=== PATIENT | female | born 1980 | race Caucasian/White ===

== ENCOUNTER → 2017-09-01 13:53 | Outpatient (CLI) | payer BC, SELFPAY ==
[2017-09-05 13:07] LABS: HPV Reflexed? NOT INDICATED
== END ==
PROVIDERS: Visit Provider Obstetrics & Gynecology
DX: R87.612 Low grade squamous intraepithelial lesion on cytologic smear of cervix (LGSIL) (principal)
CPT/HCPCS: 88175; G0145

== ENCOUNTER → 2018-03-04 11:55 | Outpatient (CLI) | payer BC, SELFPAY ==
[2018-03-10 11:56] LABS: HPV Reflexed? NOT INDICATED
== END ==
PROVIDERS: Visit Provider Obstetrics & Gynecology
DX: R87.612 Low grade squamous intraepithelial lesion on cytologic smear of cervix (LGSIL) (principal)
CPT/HCPCS: 88175; G0145

== ENCOUNTER → 2018-07-14 13:29 | Outpatient (CLI) | payer BC, SELFPAY ==
[2018-07-15 17:13] LABS: HPV Reflexed? NOT INDICATED
== END ==
PROVIDERS: Visit Provider Obstetrics & Gynecology
DX: R87.612 Low grade squamous intraepithelial lesion on cytologic smear of cervix (LGSIL) (principal)
CPT/HCPCS: 88175; G0145

== ENCOUNTER → 2018-11-26 13:52 | Outpatient (CLI) | payer BC, SELFPAY ==
[2018-12-04 12:29] LABS: HPV Reflexed? YES, CHARGE PATIENT
== END ==
PROVIDERS: Visit Provider Obstetrics & Gynecology
DX: Z12.4 Encounter for screening for malignant neoplasm of cervix (principal)
CPT/HCPCS: 87624; 88175; G0145

== ENCOUNTER → 2019-12-16 14:39 | Outpatient (CLI) | payer OTHER, SELFPAY ==
[2019-12-22 03:07] LABS: Age Gdln ACOG Testing 30-65 (.)
[2019-12-22 08:48] LABS: HPV APTIMA, High Risk Negative (Negative)
[2019-12-22 08:49] LABS: HPV Reflexed? YES, CHARGE PATIENT
== END ==
PROVIDERS: Visit Provider Obstetrics & Gynecology
DX: Z12.4 Encounter for screening for malignant neoplasm of cervix (principal)
CPT/HCPCS: 87624; 88175; G0145

== ENCOUNTER 2020-07-09 16:31 | Inpatient (IN) | payer OTHER, SELFPAY ==
[2020-07-09 16:32] VITALS: BP 158/109; PULSE 112; RESP 18; TEMP 36.9; O2SAT 99; BMI 44.6
--- NOTE | 2020-07-09 16:38 | ED.DCSUM_ITS ---
History of Present Illness Chief Complaint: Wound Check Detail of Chief Complaint: Under red swollen left breast due to trauma Informant: Patient, Family Onset: Weeks Context: Sudden Onset Timing: Continuous Quality: Pain Location: Left breast above areola Current Severity: Mild Maximum Severity: Moderate Worsened by: Touch or pressure Relieved by: Nothing Associated Symptoms: No fever, chills or night sweats. No drainage Narrative: Patient is a 40-year-old woman who states a door fell on her left breast greater than week ago. She presents now because of pain, swelling and redness. She denies history medic fever, heart murmur, SBE or mitral valve prolapse. She is on no immunosuppressive meds. She denies fever or chills. She denies any other symptoms. She denies allergy to any antibiotics. Prior similar symptoms: No Recent Illness/Hospitalization: No - Past Medical History (1) No significant past medical history Status: Acute Past Medical History - Allergies and Home Meds Allergies/Adverse Reactions: Allergies No Known Allergies Allergy (Verified 07/09/20 16:31) Primary Care Physician: Candace Luke PA-C [Primary Care Provider] - Prior records reviewed: Yes Surgical History: noncontributory Lives: Alone Alcohol: Rare Drugs: None Review of Systems General: Denies: Chills, Fever, Malaise, Subjective, Sweats, Weight loss, - Eyes: Denies: Visual changes - bilaterally, Blurred Vision - bilaterally ENT: Denies: Rhinorrhea, Sore throat Cardiovascular: Denies: Chest pain, Palpitations Respiratory: Denies: Dyspnea, Cough, Dyspnea on exertion Gastrointestinal: Denies: Abdominal pain, Nausea, Vomiting Musculoskeletal: Denies: Myalgias, Arthralgias, Neck pain, Back pain, Swelling Skin: Reports: Rash, Wounds Neurological: Denies: Headache, Weakness Endocrine: Denies: Polyuria Hematologic: Denies: Easy bruising, Easy bleeding Physical Exam Vital Signs/Narrative: Vital Signs Temp Pulse Resp BP Pulse Ox 07/09/20 16:32 98.5 F 112 H 18 158/109 H 99 Inital Vital Signs reviewed: Yes General: Well nourished, Well developed, Obese, - - Appears uncomfortable removing her top. Head: Normocephalic, Atraumatic Eyes: Perrl, EOMI. Negative for: Pale conjunctiva, Scleral icterus ENT: Moist mucous membranes, No rhinorrhea Neck: Supple, Nontender, No lymphadenopathy Cardiovascular: Regular rhythm, No murmurs, Normal S1, Normal S2, Tachycardia Respiratory: No distress, CTA bilaterally, Chest nontender Rectal: Deferred Back: Nontender, Normal Inspection Extremities: Nontender, No edema Skin: Normal color, Rash. Negative for: No rash, Cyanosis, Diaphoresis, Jaundice Neurological: Alert, Oriented x3, Cranial nerves II-XII grossly intact, Normal Strength, Normal Sensation Psychological: Normal affect, Normal Mood Diagnostic/Tx/Re-eval Laboratory Results 07/09/20 07/09/20 07/09/20 17:06 17:06 17:06 WBC 18.3 H RBC 4.18 L Hgb 12.2 Hct 37.2 MCV 89.0 MCH 29.2 MCHC 32.8 RDW Std Deviation 42.1 RDW Coeff of Umair 12.8 Plt Count 650 H MPV 9.3 Immature Gran % (Auto) 0.500 Neut % (Auto) 77.4 H Lymph % (Auto) 17.2 L [place] % (Auto) 4.2 Eos % (Auto) 0.4 Baso % (Auto) 0.3 Absolute Neuts (auto) 14.1 H Absolute Lymphs (auto) 3.15 Nucleated RBC % 0 Sodium 135 L Potassium 3.8 Chloride 103 Carbon Dioxide 23.0 Anion Gap 9 BUN 9 Creatinine 0.74 Estim Creat Clear Calc 94.60 Est GFR (MDRD) Af Amer 111 Est GFR (MDRD) Non-Af 92 BUN/Creatinine Ratio 12.1 Glucose 99 Lactic Acid 1.5 Calcium 9.3 - Medical Decision Making Has a abscess the size of a dime above the left areola. There is surrounding cellulitis. Plan is to incise and drain the abscess. Please read procedure note. Patient received antibiotics by mouth after procedure. Suspect her tachycardia is due to pain. Patient was treated IV antibiotics for sepsis. Please read procedure note. The surgeon on-call was paged and hospitalist at 1848 for admission. Procedures Procedure(s): Incision and drainage of left breast abscess. Patient was prepped draped sterile manner. The area was anesthetized by local infiltration using 1% lidocaine. A field block was placed as well. A 2.5 cm incision was made. Approximately two thirds a couple of green thick purulent material drained. The fluid was initially under pressure. The cavity is 5 x 6 cm in size. The cavity was irrigated. Using 1/2 inch Nu Gauze a wick was placed to facilitate further drainage and keep incision open. Case was discussed with surgeon and agrees with treatment. ED Disposition - Plan for ED Patient: Disposition: [facility] Diagnosis: Cellulitis and abscess of other specified site, Sepsis Referrals: Candace Luke PA-C [Primary Care Provider] -
[2020-07-09] MEDS: Lidocaine 1% (20 ml mdv) 20 ML Vial INFILT (16:45)
[2020-07-09] MEDS: HYDROmorphone 0.5 MG/0.5 ML SYRINGE IV (17:02)
[2020-07-09 17:30] LABS: Anion Gap 9 (5-15); BUN 9 mg/dL (7-18); BUN/Creat Ratio 12.1 RATIO (10-20); Calcium,Total 9.3 mg/dL (8.5-10.1); Chloride 103 mmol/L (98-107); Creatinine, Serum 0.74 mg/dL (0.55-1.02); EST Glomerular Filtration Rate 92 mL/min (>60); Est Glom Filt Rate - Afr Amer 111 mL/min (>60); Glucose 99 mg/dL (74-106); Potassium 3.8 mmol/L (3.5-5.1); Sodium Level 135 mmol/L (136-145)
[2020-07-09 17:31] LABS: Absolute Lymphocyte Count 3.15 X10^3/uL (0.83-4.51); Absolute Neutrophil Count 14.1 X10^3/uL (2.0-7.7); Basophil# 0.06 X10^3/uL; Basophil% 0.3 % (0-1); Eosinophil# 0.08 X10^3/uL; Eosinophils% 0.4 % (0-5); Hematocrit 37.2 % (37-47); Hemoglobin 12.2 g/dL (12.0-15.0); Lymphocyte # 3.15 X10^3/ul (4.0); Lymphocyte % 17.2 % (19-41); Mean Corp Hgb Conc 32.8 g/dL (32-36); Mean Corpuscular Hgb 29.2 pg (27.0-32.0); Mean Platelet Vol. 9.3 fl (6.2-12.0); Monocyte# 0.77 X10^3/uL; Monocyte% 4.2 % (0-10); NRBC Flagged by Analyzer 0 % (0-5); Neutrophil # 14.14 X10^3/uL (2.7-7.7); Neutrophil % 77.4 % (47-70); Platelet Count 650 K/mm3 (150-450); RBC Distribution Width CV 12.8 % (11.6-14.6); RBC Distribution Width SD 42.1 fl (35.1-43.9); Red Blood Count 4.18 M/mm3 (4.2-5.4); White Blood Count 18.3 K/mm3 (4.4-11.0)
[2020-07-09 18:08] LABS: Lactic Acid 1.5 mmol/L (0.4-1.9)
[2020-07-09 18:55] VITALS: BP 158/91; PULSE 99; RESP 19; TEMP 37.4; O2SAT 100
--- NOTE | 2020-07-09 19:24 | HP.PCM_ITS ---
Problem List (1) Breast abscess Status: Acute (2) No significant past medical history Status: Acute (3) Cellulitis and abscess of other specified site Status: Acute (4) Sepsis Status: Acute History of Present Illness Date of Admission: 07/09/20 Chief Complaint: swelling and pain of left breast The patient is a 40 year old F with a significant history of insomnia and depression who presents to the emergency department with pain and swelling of her left breast. Symptoms developed after a closet fell on her left breast about a month ago. She had a mammogram and an ultrasound which showed hematoma. Three days ago the pain and the swelling in the left breast increased. She described the pain in the left breast as excruciating and sharp. It is nonradiating. There are no aggravating or ameliorating factors to the pain. Her PCP told her to wait until 07/10/[address] Collier but if her symptoms increased she should come to the emergency department. Because her symptoms increase she came to the emergency department. Past Medical History Medical History: Medical History (Last Updated 07/09/20 @ 20:[address] Gurmeet Heaton MD) Insomnia G47.00 Allergies No Known Allergies Allergy (Verified 07/09/20 16:31) Home Medications: Ambulatory Orders Medication Instructions Recorded Fluoxetine [Prozac] 40 mg PO QHS 07/09/20 Zolpidem Tartrate 5 mg PO QHS 07/09/20 l-Norgest/E.estradiol-E.estrad 1 ea PO QHS 07/09/20 [Seasonique 0.15-0.03-0.01 Tab] Surgical History: cholecystectomy, - - Lives: Alone Smoking Status: Current every day smoker Tobacco Use: Cigarettes Alcohol: Rare Drugs: None - *Family History Maternal History Items: Diabetes, Hypertension Paternal History Items: Diabetes, Hypertension Review of Systems Constitutional: Reports: Chills. Denies: Weight Change HEENT: Denies: Head Aches, Sinus Congestion, Sinus Drainage Cardiovascular: Denies: Chest Pain, Palpitations Respiratory: Denies: Cough, Shortness of breath at rest, Sputum production Gastrointestinal: Denies: Abdominal Pain, Nausea, Vomiting Genitourinary: Denies: Dysuria Musculoskeletal: Denies: Joint Pain, Joint Tenderness Skin: Denies: Rash, Wounds Neurological: Denies: Numbness, Tingling, Focal weakness Psychiatric: Denies: Anxiety, Depression, Homicidal Ideations, Suicidal Ideations Hematologic/ Lymphatic: Denies: Easy Bruising, Easy Bleeding VTE Information - Inpt Only VTE Present on Admission: No VTE Mechan Device Prophylaxis: SCD's VTE Pharm Prophylaxis ordered?: No Patient Problems: Active and Suspected Problems (Last Updated 07/09/20 @ 20:[address] Gurmeet Heaton MD) No significant past medical history (Acute) Cellulitis and abscess of other specified site (Acute) Sepsis (Acute) Breast abscess (Acute) - Physical Exam Vitals/I&O's: Vital Signs Temp Pulse Resp BP Pulse Ox 99.4 F H 99 19 H 158/91 H 100 07/09/20 18:55 07/09/20 18:55 07/09/20 18:55 07/09/20 18:55 07/09/20 18:55 Oxygen Delivery Method Room Air Weight: 125.373 kg Body Mass Index (BMI) 44.6 General: Alert, Oriented x3, Cooperative HEENT: Atraumatic, PERRLA, EOMI, Normocephalic Neck: Supple, No JVD, Negative Carotid Bruits Lungs: Clear to auscultation, Normal air movement Cardiovascular: Regular rate, No murmurs Abdomen: Bowel Sounds Present, Soft, Non Tender Extremities: No edema, Capillary Refill Less than 3 Seconds Skin: No rashes, No breakdown, - - Left breast was examined after I&D. Left breast is tender; swollen with iodoform dressing in surgical incision. Musculoskeletal: No Tenderness to Palpation of Joints or Extremities Neurological: Cranial nerves II-XII grossly intact Psych/Mental Status: Normal Affect, Appropriate Laboratory Results 07/09/20 17:06: WBC 18.3 H, RBC 4.18 L, Hgb 12.2, Hct 37.2, MCV 89.0, MCH 29.2, MCHC 32.8, RDW Std Deviation 42.1, RDW Coeff of Umair 12.8, Plt Count 650 H, MPV 9.3, Immature Gran % (Auto) 0.500, Neut % (Auto) 77.4 H, Lymph % (Auto) 17.2 L, [place] % (Auto) 4.2, Eos % (Auto) 0.4, Baso % (Auto) 0.3, Absolute Neuts (auto) 14.1 H, Absolute Lymphs (auto) 3.15, Nucleated RBC % 0 07/09/20 17:06: Sodium 135 L, Potassium 3.8, Chloride 103, Carbon Dioxide 23.0, Anion Gap 9, BUN 9, Creatinine 0.74, Estim Creat Clear Calc 94.60, Est GFR (MDRD) Af Amer 111, Est GFR (MDRD) Non-Af 92, BUN/Creatinine Ratio 12.1, Glucose 99, Calcium 9.3 07/09/20 17:06: Lactic Acid 1.5 Current Medications Vancomycin HCl 2,000 mg/ (Sodium Chloride) 540 mls @ 250 mls/hr IV X1 ONE Stop: 07/09/20 20:09 Assessment/Plan All Active Problems (Last Updated 07/09/20 @ 20:[address] Gurmeet Heaton MD) No significant past medical history (Acute) Cellulitis and abscess of other specified site (Acute) Sepsis (Acute) Breast abscess (Acute) The patient is a 40 year old F with a significant history of insomnia and depression who presents to the emergency department with pain and swelling of her left breast. Abscess with cellulitis of the left breast I&D of breast abscess at the emergency department. Emergent department doctor reports draining about two thirds of greenish pus and sending cultures. Vancomycin and Unasyn ordered at emergency department and continued. Emergent department doctor discussed the case with Dr. Pacheco who is okay to follow patient. Inpatient consult for Dr. Pacheco, General surgery. Blood culture obtained at emergency department; follow Reportedly developed redness and itching vancomycin. Vancomycin rate of infusion decreased. As needed Benadryl ordered. Morbid Obesity BMI: 44.4. Complicates care. Lifestyle modification recommended. Depression Prozac continued Insomnia Ambien continued. DVT prophylaxis SCD ordered. Inpatient E&M: 18718 Init Hosp L3
[2020-07-09 19:35] VITALS: BP 152/73; PULSE 94; RESP 24; TEMP 37.2; O2SAT 100
[2020-07-09 20:37] VITALS: BP 158/91; PULSE 99; RESP 19; TEMP 37.4
[2020-07-09 20:48] VITALS: BMI 44.4
[2020-07-09 20:53] VITALS: BP 152/70; PULSE 103; RESP 18; TEMP 36.9; O2SAT 97
[2020-07-09 20:57] VITALS: BMI 44.4
[2020-07-09] MEDS: DiphenhydrAMINE 50 MG/ML Syringe 25 MG IV (21:13)
[2020-07-09] MEDS: Zolpidem Tartrate 5 MG Tablet PO (21:41)
[2020-07-09] MEDS: oxyCODONE 5 MG Tablet PO (21:41)
[2020-07-09] MEDS: Acetaminophen 325 MG Tablet 650 MG PO (21:42)
[2020-07-09] MEDS: 0.9% Saline Lock 10 ML Syringe IV (21:42)
[2020-07-09] MEDS: FLUoxetine 20 MG Capsule 40 MG PO (21:43)
[2020-07-09 21:50] VITALS: O2SAT 97
--- NOTE | 2020-07-09 22:26 | PCM.RX.CS ---
Consult Pharmacy has been consulted to manage selected antiobiotic: Vancomycin Type of Consult: New start Suspected Infection: Skin/Soft tissue Prior Doses of Antibiotics Received/Current Regimen: Medications Vancomycin HCl 1,500 mg/ (Sodium Chloride) 530 mls @ 150 mls/hr IV Q12H CHARLI Discontinued Medications Vancomycin HCl 2,000 mg/ (Sodium Chloride) 540 mls @ 250 mls/hr IV X1 ONE Stop: 07/09/20 20:09 Last Admin: 07/09/20 20:45 Dose: 150 mls/hr Labs: Sodium 135 mmol/L (136-145) L 07/09/20 17:06 Potassium 3.8 mmol/L (3.5-5.1) 07/09/20 17:06 Chloride 103 mmol/L (98-107) 07/09/20 17:06 Carbon Dioxide 23.0 mmol/L (21.0-32.0) 07/09/20 17:06 Anion Gap 9 (5-15) 07/09/20 17:06 BUN 9 mg/dL (7-18) 07/09/20 17:06 Creatinine 0.74 mg/dL (0.55-1.02) 07/09/20 17:06 Est GFR (MDRD) Af Amer 111 mL/min (>60) 07/09/20 17:06 Est GFR (MDRD) Non-Af 92 mL/min (>60) 07/09/20 17:06 BUN/Creatinine Ratio 12.1 RATIO (10-20) 07/09/20 17:06 Glucose 99 mg/dL (74-106) 07/09/20 17:06 Weight used for dosin.4 kg Estimated Creatinine Clearance: 95 Goal Trough: 10-15 mcg/mL Pharmacy Plan for Drug Dosing: Doses are to be run at slower rate (150ml/hr) due to signs of red man syndrome with initial dose. Pharmacy Service will continue to monitor and adjust dosing as required. Follow-Up Labs: Trough Vancomycin Labs to be done on [date and time ordered]: 07/11/20 @0700
[2020-07-10] MEDS: oxyCODONE 5 MG Tablet 10 MG PO ×5 (01:46→20:57)
[2020-07-10 02:03] VITALS: BP 144/75; PULSE 84; RESP 16; TEMP 37.1; O2SAT 98
[2020-07-10] MEDS: Acetaminophen 325 MG Tablet 650 MG PO ×3 (06:01→19:17)
[2020-07-10 06:33] LABS: Absolute Lymphocyte Count 3.66 X10^3/uL (0.83-4.51); Absolute Neutrophil Count 7.7 X10^3/uL (2.0-7.7); Basophil# 0.04 X10^3/uL; Basophil% 0.3 % (0-1); Eosinophil# 0.14 X10^3/uL; Eosinophils% 1.1 % (0-5); Hematocrit 33.5 % (37-47); Hemoglobin 10.3 g/dL (12.0-15.0); Lymphocyte # 3.66 X10^3/ul (4.0); Mean Corp Hgb Conc 30.7 g/dL (32-36); Mean Corpuscular Hgb 28.2 pg (27.0-32.0); Mean Corpuscular Volume 91.8 fL (81-99); Mean Platelet Vol. 9.4 fl (6.2-12.0); Monocyte# 0.65 X10^3/uL; Monocyte% 5.3 % (0-10); NRBC Flagged by Analyzer 0 % (0-5); Neutrophil # 7.66 X10^3/uL (2.7-7.7); Neutrophil % 62.8 % (47-70); Platelet Count 566 K/mm3 (150-450); RBC Distribution Width CV 12.8 % (11.6-14.6); RBC Distribution Width SD 43.1 fl (35.1-43.9); Red Blood Count 3.65 M/mm3 (4.2-5.4); White Blood Count 12.2 K/mm3 (4.4-11.0)
[2020-07-10] MEDS: DiphenhydrAMINE 50 MG/ML Syringe 25 MG IV ×2 (07:43→21:45)
[2020-07-10] MEDS: FLUoxetine 20 MG Capsule 40 MG PO (07:45)
[2020-07-10] MEDS: 0.9% Saline Lock 10 ML Syringe IV ×4 (07:45→21:45)
[2020-07-10 07:49] VITALS: BP 125/69; PULSE 69; RESP 14; TEMP 36.5; O2SAT 98
--- NOTE | 2020-07-10 08:20 | PCM.CONS.GEN ---
Reason for Consult Date of Consultation: 07/10/20 History of Present Illness: The patient is a 40 year old F And due to left breast abscess. Patient states that she was hanging a closet door about a month ago and it fell just right on her left breast. Patient had did see her PCP at [place] and got a mammogram and ultrasound that time which patient states was normal. Patient continued to talk with her PCP as she was having pain and redness at the site as well as swelling. PCP told her to alternate hot and cold. Patient states that enlarged and was more painful.she came to the ER. Patient white blood count of 18.5. I&D was performed on the left breast at 9:00 in the ER by the ER physician. Culture was obtained. Along with purulent drainage. Wound was packed with half-inch iodoform.Patient denies ever having previous breast abscesses. Past Medical History Medical History: Medical History (Last Updated 07/09/20 @ 20:[address] 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 Denies: Anxiety Hematologic/ Lymphatic: Denies: Easy Bruising, Easy Bleeding Patient Problems: Active and Suspected Problems (Last Updated 07/09/20 @ 20:[address] Gurmeet Heaton MD) No significant past medical history (Acute) Cellulitis and abscess of other specified site (Acute) Sepsis (Acute) Breast abscess (Acute) - Physical Exam Vitals/I&O's: Vital Signs Temp Pulse Resp BP Pulse Ox 97.7 F L 69 14 125/69 H 98 07/10/20 07:49 07/10/20 07:49 07/10/20 07:49 07/10/20 07:49 07/10/20 07:49 Oxygen Delivery Method Room Air Weight: 275 lb 5.718 oz Body Mass Index (BMI) 44.4 Intake and Output for Last 24 Hours 07/08/20 07/09/20 07/10/20 23:59 23:59 23:59 Intake Total 652.00 / 1312.00 1084 / 1084 Balance 652.00 / 1312.00 1084 / 1084 General: Alert, Oriented x3, Cooperative, No apparent distress HEENT: Atraumatic Lungs: Normal air movement Cardiovascular: Regular rate Abdomen: Soft, Non Tender, Non-Distended Extremities: No clubbing, No cyanosis, No edema Skin: - - Left breast 12:00 to 6:00 Indurated/erythematous of 15 cm in diameter, incision about 4 cm packed,Tender to palpation, purulent/sanguinous drainage on packing Neurological: Cranial nerves II-XII grossly intact Psych/Mental Status: Normal Affect Laboratory Results 07/09/20 17:06: WBC 18.3 H, RBC 4.18 L, Hgb 12.2, Hct 37.2, MCV 89.0, MCH 29.2, MCHC 32.8, RDW Std Deviation 42.1, RDW Coeff of Umair 12.8, Plt Count 650 H, MPV 9.3, Immature Gran % (Auto) 0.500, Neut % (Auto) 77.4 H, Lymph % (Auto) 17.2 L, [place] % (Auto) 4.2, Eos % (Auto) 0.4, Baso % (Auto) 0.3, Absolute Neuts (auto) 14.1 H, Absolute Lymphs (auto) 3.15, Nucleated RBC % 0 07/09/20 17:06: Sodium 135 L, Potassium 3.8, Chloride 103, Carbon Dioxide 23.0, Anion Gap 9, BUN 9, Creatinine 0.74, Estim Creat Clear Calc 94.60, Est GFR (MDRD) Af Amer 111, Est GFR (MDRD) Non-Af 92, BUN/Creatinine Ratio 12.1, Glucose 99, Calcium 9.3 07/09/20 17:06: Lactic Acid 1.5 07/10/20 06:20: WBC 12.2 H, RBC 3.65 L, Hgb 10.3 L, Hct 33.5 L, MCV 91.8, MCH 28.2, MCHC 30.7 L D, RDW Std Deviation 43.1, RDW Coeff of Umair 12.8, Plt Count 566 H, MPV 9.4, Immature Gran % (Auto) 0.500, Neut % (Auto) 62.8, Lymph % (Auto) 30.0, [place] % (Auto) 5.3, Eos % (Auto) 1.1, Baso % (Auto) 0.3, Absolute Neuts (auto) 7.7, Absolute Lymphs (auto) 3.66, Nucleated RBC % 0 Current Medications Acetaminophen (Acetaminophen 325 Mg Tablet) 650 mg PO Q6H PRN PRN PRN Reason: Pain Score 1-10/Temp > 100.7 F Last Admin: 07/10/20 06:01 Dose: 650 mg Documented by: Diphenhydramine HCl (Diphenhydramine 50 Mg/Ml Syringe) 25 mg IV Q4H PRN PRN PRN Reason: ITCHING Last Admin: 07/10/20 07:43 Dose: 25 mg Documented by: Fluoxetine HCl (Fluoxetine 20 Mg Capsule) 40 mg PO DAILY [facility] Last Admin: 07/10/20 07:45 Dose: 40 mg Documented by: Ampicillin Sodium/Sulbactam (Sodium 3 gm/ Sodium Chloride) 112 mls @ 150 mls/hr IV Q6 [facility] Last Infusion: 07/10/20 06:46 Dose: Infused Documented by: Vancomycin IV Pharmacy to Dose (1 ea/ Sodium Chloride) 500 mls @ 250 mls/hr IV PRN PRN; Protocol PRN Reason: Rx to Dose Sodium Chloride () 250 mls @ 15 mls/hr IV .[id number] PRN PRN Reason: Saline Flush Sodium Chloride () 250 mls @ 15 mls/hr IV .[id number] PRN PRN Reason: Additional IVPB Infusion Vancomycin HCl 1,500 mg/ (Sodium Chloride) 530 mls @ 150 mls/hr IV Q12H CHARLI Last Admin: 07/10/20 07:43 Dose: 150 mls/hr Documented by: Ondansetron HCl (Ondansetron 4 Mg/2 Ml Vial) 4 mg IV Q8H PRN PRN PRN Reason: NAUSEA/VOMITING Oxycodone HCl (Oxycodone 5 Mg Tablet) 5 mg PO Q4H PRN PRN PRN Reason: Pain Score 4-5 Last Admin: 07/09/20 21:41 Dose: 5 mg Documented by: Oxycodone HCl (Oxycodone 5 Mg Tablet) 10 mg PO Q4H PRN PRN PRN Reason: pain 6-10/10 Last Admin: 07/10/20 06:02 Dose: 10 mg Documented by: Senna/Docusate Sodium (Senna/Docusate Sodium 1 Tablet) 2 tablet PO BID PRN PRN PRN Reason: Constipation Sodium Chloride (0.9% Saline Lock 10 Ml Syringe) 10 - 40 ml IV UD PRN PRN Reason: SALINE FLUSH Last Admin: 07/10/20 07:45 Dose: 10 ml Documented by: Zolpidem Tartrate (Zolpidem Tartrate 5 Mg Tablet) 5 mg PO QHS CHARLI Last Admin: 07/09/20 21:41 Dose: 5 mg Documented by: Assessment/Plan All Active Problems (Last Updated 07/09/20 @ 20:[address] Gurmeet Heaton MD) No significant past medical history (Acute) Cellulitis and abscess of other specified site (Acute) Sepsis (Acute) Breast abscess (Acute) 40-year-old female with left breast abscess status post I&D in the ER. 1. Wound cultures pending from the ER. Patient is on Unasyn IV. Will consult wound nurse. Packing from air was removed. will plan to repeat packing likely change 3 times daily initially. Flor Pacheco M.D. Pager: [phone] [facility] [address] [place] [address], [facility], [address] [place] [address] Office: [phone] Inpatient E&M: 52672 Init Hosp L2
[2020-07-10 08:22] VITALS: O2SAT 94
--- NOTE | 2020-07-10 08:35 | PN_ITS ---
Patient Problems: Active and Suspected Problems (Last Updated 07/09/20 @ 20:[address] Gurmeet Heaton MD) No significant past medical history (Acute) Cellulitis and abscess of other specified site (Acute) Sepsis (Acute) Breast abscess (Acute) Reason for Visit: Left breast abscess. Objective: Seen and examined in the presence of nurse, Mar Patient has a spontaneous development of left breast pain, tenderness, swelling and found to have abscess. It was drained in ER. [facility] Physical exam General: Alert, Oriented x3, Cooperative HEENT: Atraumatic, PERRLA, EOMI, Normocephalic Oral: No Gingival or Mucosal Lesions/ Ulcerations Neck: Supple, No JVD, Negative Carotid Bruits Lungs: Air entry diminished in bilateral lung bases. No crepitation/rhonchi Cardiovascular: Regular rate, Regular Rhythm, Normal S1, Normal S2, No murmurs Abdomen: Bowel Sounds Present, Soft, Non Tender, Non-Distended : No renal angle tenderness. No suprapubic tenderness. Extremities: No edema, Capillary Refill Less than 3 Seconds Skin/breast: Tenderness and induration in and around the left breast, diffuse. Redness has improved. Musculoskeletal: No Tenderness to Palpation of Joints or Extremities Neurological: Cranial nerves II-XII grossly intact, Deep Tendon Reflexes 2+/4 and Symmetrical, Neuro grossly intact Psych/Mental Status: Normal Affect, Appropriate. Vitals/I&O's: Vital Signs Temp Pulse Resp BP Pulse Ox 97.7 F L 69 14 125/69 H 94 07/10/20 07:49 07/10/20 07:49 07/10/20 07:49 07/10/20 07:49 07/10/20 08:22 Oxygen Delivery Method Room Air Weight: 275 lb 5.718 oz Body Mass Index (BMI) 44.4 Intake and Output for Last 24 Hours 07/08/20 07/09/20 07/10/20 23:59 23:59 23:59 Intake Total 652.00 / 1312.00 1084 / 1084 Balance 652.00 / 1312.00 1084 / 1084 Laboratory Results 07/09/20 17:06: WBC 18.3 H, RBC 4.18 L, Hgb 12.2, Hct 37.2, MCV 89.0, MCH 29.2, MCHC 32.8, RDW Std Deviation 42.1, RDW Coeff of Umair 12.8, Plt Count 650 H, MPV 9.3, Immature Gran % (Auto) 0.500, Neut % (Auto) 77.4 H, Lymph % (Auto) 17.2 L, [place] % (Auto) 4.2, Eos % (Auto) 0.4, Baso % (Auto) 0.3, Absolute Neuts (auto) 14.1 H, Absolute Lymphs (auto) 3.15, Nucleated RBC % 0 07/09/20 17:06: Sodium 135 L, Potassium 3.8, Chloride 103, Carbon Dioxide 23.0, Anion Gap 9, BUN 9, Creatinine 0.74, Estim Creat Clear Calc 94.60, Est GFR (MDRD) Af Amer 111, Est GFR (MDRD) Non-Af 92, BUN/Creatinine Ratio 12.1, Glucose 99, Calcium 9.3 07/09/20 17:06: Lactic Acid 1.5 07/10/20 06:20: WBC 12.2 H, RBC 3.65 L, Hgb 10.3 L, Hct 33.5 L, MCV 91.8, MCH 28.2, MCHC 30.7 L D, RDW Std Deviation 43.1, RDW Coeff of Umair 12.8, Plt Count 566 H, MPV 9.4, Immature Gran % (Auto) 0.500, Neut % (Auto) 62.8, Lymph % (Auto) 30.0, [place] % (Auto) 5.3, Eos % (Auto) 1.1, Baso % (Auto) 0.3, Absolute Neuts (auto) 7.7, Absolute Lymphs (auto) 3.66, Nucleated RBC % 0 Current Medications Acetaminophen (Acetaminophen 325 Mg Tablet) 650 mg PO Q6H PRN PRN PRN Reason: Pain Score 1-10/Temp > 100.7 F Last Admin: 07/10/20 06:01 Dose: 650 mg Documented by: Diphenhydramine HCl (Diphenhydramine 50 Mg/Ml Syringe) 25 mg IV Q4H PRN PRN PRN Reason: ITCHING Last Admin: 07/10/20 07:43 Dose: 25 mg Documented by: Fluoxetine HCl (Fluoxetine 20 Mg Capsule) 40 mg PO DAILY [facility] Last Admin: 07/10/20 07:45 Dose: 40 mg Documented by: Ampicillin Sodium/Sulbactam (Sodium 3 gm/ Sodium Chloride) 112 mls @ 150 mls/hr IV Q6 [facility] Last Infusion: 07/10/20 06:46 Dose: Infused Documented by: Vancomycin IV Pharmacy to Dose (1 ea/ Sodium Chloride) 500 mls @ 250 mls/hr IV PRN PRN; Protocol PRN Reason: Rx to Dose Sodium Chloride () 250 mls @ 15 mls/hr IV .[id number] PRN PRN Reason: Saline Flush Sodium Chloride () 250 mls @ 15 mls/hr IV .[id number] PRN PRN Reason: Additional IVPB Infusion Vancomycin HCl 1,500 mg/ (Sodium Chloride) 530 mls @ 150 mls/hr IV Q12H [facility] Last Admin: 07/10/20 07:43 Dose: 150 mls/hr Documented by: Ondansetron HCl (Ondansetron 4 Mg/2 Ml Vial) 4 mg IV Q8H PRN PRN PRN Reason: NAUSEA/VOMITING Oxycodone HCl (Oxycodone 5 Mg Tablet) 5 mg PO Q4H PRN PRN PRN Reason: Pain Score 4-5 Last Admin: 07/09/20 21:41 Dose: 5 mg Documented by: Oxycodone HCl (Oxycodone 5 Mg Tablet) 10 mg PO Q4H PRN PRN PRN Reason: pain 6-10/10 Last Admin: 07/10/20 06:02 Dose: 10 mg Documented by: Senna/Docusate Sodium (Senna/Docusate Sodium 1 Tablet) 2 tablet PO BID PRN PRN PRN Reason: Constipation Sodium Chloride (0.9% Saline Lock 10 Ml Syringe) 10 - 40 ml IV UD PRN PRN Reason: SALINE FLUSH Last Admin: 07/10/20 07:45 Dose: 10 ml Documented by: Zolpidem Tartrate (Zolpidem Tartrate 5 Mg Tablet) 5 mg PO QHS [facility] Last Admin: 07/09/20 21:41 Dose: 5 mg Documented by: STROKE Vital Signs/Narrative: Vital Signs Temp Pulse Resp BP Pulse Ox 07/10/20 08:22 94 07/10/20 07:49 97.7 F L 69 14 125/69 H 98 Medical Necessity - Tobacco Use Smoking Status: Current every day smoker Tobacco Use: Cigarettes Assessment/Plan All Active Problems (Last Updated 07/09/20 @ 20:[address] Gurmeet Heaton MD) No significant past medical history (Acute) Cellulitis and abscess of other specified site (Acute) Sepsis (Acute) Breast abscess (Acute) The patient is a 40 year old F with a significant history of insomnia and depression who presents to the emergency department with pain and swelling of he r left breast. 1. Abscess with cellulitis of the left breast most likely from trauma about a month ago: Patient is admitted for. Patient had incision and drainage with greenish-yellow pus by ER physician. Prelim Gram stain of abscess shows gram- positive cocci in clusters, 3+ staph aureus. Patient was on vancomycin and Unasyn. Vancomycin discontinued. Seen by surgeon, Dr. Pacheco. As per H&P, patient had mild redness after vancomycin infusion and rate was slowed. 2. Morbid Obesity BMI: 44.4. Complicates care. Lifestyle modification recommended. 3. Depression Prozac continued 4. Insomnia Ambien continued. DVT prophylaxis: Moderate risk. Lovenox 40 mg subcu daily 1 SCD Inpatient E&M: 20400 Subs Hosp L2
[2020-07-10 09:13] LABS: ALB/GLOB Ratio 0.6 RATIO (0.9-2.4); AST(SGOT) 12 U/L (15-37); Alanine Aminotransfer ALT/SGPT 22 U/L (13-56); Albumin, Serum 2.8 g/dL (3.2-5.0); Alkaline Phosphatase 114 U/L (45-117); Anion Gap 7 (5-15); BUN 10 mg/dL (7-18); Calcium,Total 8.6 mg/dL (8.5-10.1); Chloride 107 mmol/L (98-107); Creatinine, Serum 0.66 mg/dL (0.55-1.02); EST Glomerular Filtration Rate 104 mL/min (>60); Est Glom Filt Rate - Afr Amer 126 mL/min (>60); Estimated Creatinine Clearance 106.07 ml/min; Globulin 4.5 g/dL (2.2-4.2); Glucose 91 mg/dL (74-106); Potassium 3.8 mmol/L (3.5-5.1); Protein, Total 7.3 g/dL (6.4-8.2); Sodium Level 138 mmol/L (136-145)
--- NOTE | 2020-07-10 09:45 | CASEMGMT ---
RN MONIK Face to Face with patient for initial transition planning/care coordination assessment. RN CM introduced self and role at [facility]. Patient lying in bed, alert and oriented. Patient willing to participate in assessment and is able to answer all questions appropriately. Care providers, pharmacy, and demographics verified. Patient wishes to discharge home, denies need for home health at this time. Patient states she has no further needs or concerns at this time. CM to follow for discharge planning needs that may arise. PCP: Candace [facility] at [facility] Specialists: none Preferred Pharmacy: [facility] Insurance: [employer] Prescription Benefit: yes Living Will/HPOA: no, no LNOK: mother Living Arrangements: Patient lives in a two story home with her mother and father. There are 2 steps to enter the home with a rail and 12 steps to the second floor with a rail where her bedroom and bathroom are located. Pt states she was independent at home. Transportation: self DME/HHC: Pt denies having DME at home nor the need for any. Pt has not previously had HHC and denies need for. Pt mother is willing and able to learn the dressing change needed. Disposition Plan: Patient to dc to home with family support and follow up plans in place.
--- NOTE | 2020-07-10 10:05 | NURSING ---
wound photo: left breast
[2020-07-10 15:00] VITALS: BP 119/68; PULSE 78; RESP 16; TEMP 36.6; O2SAT 96
[2020-07-10] MEDS: Enoxaparin 40 MG/0.4 ML Syringe SC (16:43)
[2020-07-10] MEDS: Senna/Docusate Sodium 1 Tablet 2 TABLET PO (16:44)
[2020-07-10 19:07] LABS: M R Staph aureus DNA By PCR Negative (Negative); Probe Check PASS; Specimen Processing Control PASS
[2020-07-10 20:54] VITALS: BP 137/51; PULSE 71; RESP 18; TEMP 36.7; O2SAT 93
[2020-07-10] MEDS: Zolpidem Tartrate 5 MG Tablet PO (21:42)
[2020-07-11 02:07] VITALS: BP 134/64; PULSE 76; RESP 18; TEMP 36.7; O2SAT 100
[2020-07-11] MEDS: oxyCODONE 5 MG Tablet PO (02:12)
[2020-07-11] MEDS: oxyCODONE 5 MG Tablet 10 MG PO ×5 (02:46→23:40)
[2020-07-11] MEDS: Acetaminophen 325 MG Tablet 650 MG PO ×3 (06:18→22:40)
[2020-07-11 07:26] VITALS: O2SAT 98
[2020-07-11 08:09] VITALS: BP 125/52; PULSE 71; RESP 12; TEMP 36.6; O2SAT 99
--- NOTE | 2020-07-11 08:39 | PCM.PN.SRG ---
Patient Problems: Active and Suspected Problems (Last Updated 07/09/20 @ 20:[address] Gurmeet Heaton MD) No significant past medical history (Acute) Cellulitis and abscess of other specified site (Acute) Sepsis (Acute) Breast abscess (Acute) Subjective: Patient states pain in left breast has improved set for some discomfort during dressing changes.Cultures did grow staph aureus still prelim did start vancomycin last night - Physical Exam Vitals/I&O's: Vital Signs Temp Pulse Resp BP Pulse Ox 98 F 71 12 125/52 H 99 07/11/20 08:09 07/11/20 08:09 07/11/20 08:09 07/11/20 08:09 07/11/20 08:09 Oxygen Delivery Method Room Air Weight: 275 lb 5.718 oz Body Mass Index (BMI) 44.4 Intake and Output for Last 24 Hours 07/09/20 07/10/20 07/11/20 23:59 23:59 23:59 Intake Total 652.00 / 1312.00 3038 / 3038 1254 / 1254 Balance 652.00 / 1312.00 3038 / 3038 1254 / 1254 General: Alert, Oriented x3, Cooperative, No apparent distress HEENT: Atraumatic Abdomen: Soft Skin: - - Left breast incision packed with half-inch iodoform, erythema improved still pain erythema and induration. Microbiology Past 72 Hours 07/09/20 17:15 Abs - Breast Gram Stain - Final 07/09/20 17:15 Abs - Breast Wound Culture - Preliminary Staphylococcus aureus Laboratory Results 07/10/20 06:20: Sodium 138, Potassium 3.8, Chloride 107, Carbon Dioxide 24.0, Anion Gap 7, BUN 10, Creatinine 0.66, Estim Creat Clear Calc 106.07, Est GFR (MDRD) Af Amer 126, Est GFR (MDRD) Non-Af 104, BUN/Creatinine Ratio 15.0, Glucose 91, Calcium 8.6, Total Bilirubin 0.30, AST 12 L, ALT 22, Alkaline Phosphatase 114, Total Protein 7.3, Albumin 2.8 L, Globulin 4.5 H, Albumin/Globulin Ratio 0.6 L 07/10/20 17:00: MRSA (PCR) Negative Current Medications Acetaminophen (Acetaminophen 325 Mg Tablet) 650 mg PO Q6H PRN PRN PRN Reason: Pain Score 1-10/Temp > 100.7 F Last Admin: 07/11/20 06:18 Dose: 650 mg Documented by: Diphenhydramine HCl (Diphenhydramine 50 Mg/Ml Syringe) 25 mg IV Q4H PRN PRN PRN Reason: ITCHING Last Admin: 07/10/20 21:45 Dose: 25 mg Documented by: Enoxaparin Sodium (Enoxaparin 40 Mg/0.4 Ml Syringe) 40 mg SC DAILY [facility] Fluoxetine HCl (Fluoxetine 20 Mg Capsule) 40 mg PO DAILY [facility] Last Admin: 07/10/20 07:45 Dose: 40 mg Documented by: Ampicillin Sodium/Sulbactam (Sodium 3 gm/ Sodium Chloride) 112 mls @ 150 mls/hr IV Q6 [facility] Last Infusion: 07/11/20 07:02 Dose: Infused Documented by: Sodium Chloride () 250 mls @ 15 mls/hr IV .[id number] PRN PRN Reason: Saline Flush Sodium Chloride () 250 mls @ 15 mls/hr IV .[id number] PRN PRN Reason: Additional IVPB Infusion Vancomycin IV Pharmacy to Dose (1 ea/ Sodium Chloride) 500 mls @ 250 mls/hr IV X1 PRN; Protocol PRN Reason: Rx to Dose Vancomycin HCl 1,500 mg/ (Sodium Chloride) 530 mls @ 150 mls/hr IV Q12H [facility] Last Infusion: 07/11/20 02:05 Dose: Infused Documented by: Lactobacillus Acidophilus (Lactobacillus Acidophilus) 1 tablet PO TID [facility] Last Admin: 07/11/20 06:16 Dose: 1 tablet Documented by: Ondansetron HCl (Ondansetron 4 Mg/2 Ml Vial) 4 mg IV Q8H PRN PRN PRN Reason: NAUSEA/VOMITING Oxycodone HCl (Oxycodone 5 Mg Tablet) 5 mg PO Q4H PRN PRN PRN Reason: Pain Score 4-5 Last Admin: 07/11/20 02:12 Dose: 5 mg Documented by: Oxycodone HCl (Oxycodone 5 Mg Tablet) 10 mg PO Q4H PRN PRN PRN Reason: pain 6-10/10 Last Admin: 07/11/20 02:46 Dose: 5 mg Documented by: Senna/Docusate Sodium (Senna/Docusate Sodium 1 Tablet) 2 tablet PO BID PRN PRN PRN Reason: Constipation Last Admin: 07/10/20 16:44 Dose: 2 tablet Documented by: Sodium Chloride (0.9% Saline Lock 10 Ml Syringe) 10 - 40 ml IV UD PRN PRN Reason: SALINE FLUSH Last Admin: 07/10/20 21:45 Dose: 10 ml Documented by: Zolpidem Tartrate (Zolpidem Tartrate 5 Mg Tablet) 5 mg PO QHS [facility] Last Admin: 07/10/20 21:42 Dose: 5 mg Documented by: Medical Necessity - Tobacco Use Smoking Status: Current every day smoker Tobacco Use: Cigarettes Assessment/Plan All Active Problems (Last Updated 07/09/20 @ 20:[address] Gurmeet Heaton MD) No significant past medical history (Acute) Cellulitis and abscess of other specified site (Acute) Sepsis (Acute) Breast abscess (Acute) 40-year-old female with left Staph Aureus breast abscess status post I&D in the ER. 1. Continue IV Unasyn and Zosyn until cultures resulted, staph aureus growing in prelim. Continue half inch packing 3 times daily. Flor Pacheco M.D. Pager: [phone] [facility] [address] [place] [address], Outpatient [facility], [address] [place] [address] Office: [phone] Inpatient E&M: 34431 [facility] Hosp L2
[2020-07-11 09:26] LABS: Basophil# 0.05 X10^3/uL; Basophil% 0.5 % (0-1); Eosinophil# 0.22 X10^3/uL; Eosinophils% 2.2 % (0-5); Hematocrit 30.4 % (37-47); Hemoglobin 9.7 g/dL (12.0-15.0); Lymphocyte % 33.3 % (19-41); Mean Corp Hgb Conc 31.9 g/dL (32-36); Mean Corpuscular Hgb 28.8 pg (27.0-32.0); Mean Corpuscular Volume 90.2 fL (81-99); Mean Platelet Vol. 9.1 fl (6.2-12.0); Monocyte# 0.49 X10^3/uL; Monocyte% 4.8 % (0-10); NRBC Flagged by Analyzer 0 % (0-5); Neutrophil % 58.8 % (47-70); Platelet Count 549 K/mm3 (150-450); RBC Distribution Width CV 12.8 % (11.6-14.6); RBC Distribution Width SD 42.5 fl (35.1-43.9); Red Blood Count 3.37 M/mm3 (4.2-5.4); White Blood Count 10.2 K/mm3 (4.4-11.0)
[2020-07-11] MEDS: 0.9% Saline Lock 10 ML Syringe IV (09:39)
[2020-07-11] MEDS: DiphenhydrAMINE 50 MG/ML Syringe 25 MG IV ×2 (09:39→22:25)
[2020-07-11] MEDS: Enoxaparin 40 MG/0.4 ML Syringe SC (09:48)
[2020-07-11] MEDS: FLUoxetine 20 MG Capsule 40 MG PO (09:48)
[2020-07-11 12:00] VITALS: BP 136/70; PULSE 76; RESP 16; TEMP 37; O2SAT 98
--- NOTE | 2020-07-11 15:57 | PCM.PN.HOSP ---
Patient Problems: Active and Suspected Problems (Last Updated 07/09/20 @ 20:[address] Gurmeet Heaton MD) No significant past medical history (Acute) Cellulitis and abscess of other specified site (Acute) Sepsis (Acute) Breast abscess (Acute) Reason for Visit: Follow-up for left breast abscess. Objective: Patient heart rate and blood pressure is controlled. No fever. Pain over the left breast is improving. Dressing and packing was changed. It was pus soaked packing. Physical exam General: Alert, Oriented x3, Cooperative HEENT: Atraumatic, PERRLA, EOMI, Normocephalic Oral: No Gingival or Mucosal Lesions/ Ulcerations Neck: Supple, No JVD, Negative Carotid Bruits Lungs: Air entry equal in bilateral lung bases. No crepitation/rhonchi Cardiovascular: Regular rate, Regular Rhythm, Normal S1, Normal S2, No murmurs Abdomen: Bowel Sounds Present, Soft, Non Tender, Non-Distended : No renal angle tenderness. No suprapubic tenderness. Extremities: No edema, Capillary Refill Less than 3 Seconds Skin: Left breast tenderness, redness and induration has improved. Dressing changed Musculoskeletal: No Tenderness to Palpation of Joints or Extremities Neurological: Cranial nerves II-XII grossly intact, Deep Tendon Reflexes 2+/4 and Symmetrical, Neuro grossly intact Psych/Mental Status: Normal Affect, Appropriate. Vitals/I&O's: Vital Signs Temp Pulse Resp BP Pulse Ox 98.6 F 76 16 136/70 H 98 07/11/20 12:00 07/11/20 12:00 07/11/20 12:00 07/11/20 12:00 07/11/20 12:00 Oxygen Delivery Method Room Air Weight: 275 lb 5.718 oz Body Mass Index (BMI) 44.4 Intake and Output for Last 24 Hours 07/09/20 07/10/20 07/11/20 23:59 23:59 23:59 Intake Total 652.00 / 1312.00 3038 / 3038 1254 / 1254 Balance 652.00 / 1312.00 3038 / 3038 1254 / 1254 Microbiology Past 72 Hours 07/09/20 17:15 Abs - Breast Gram Stain - Final 07/09/20 17:15 Abs - Breast Wound Culture - Preliminary Staphylococcus aureus Laboratory Results 07/10/20 17:00: MRSA (PCR) Negative 07/11/20 09:14: WBC 10.2, RBC 3.37 L, Hgb 9.7 L, Hct 30.4 L, MCV 90.2, MCH 28.8, MCHC 31.9 L, RDW Std Deviation 42.5, RDW Coeff of Umair 12.8, Plt Count 549 H, MPV 9.1, Immature Gran % (Auto) 0.400, Neut % (Auto) 58.8, Lymph % (Auto) 33.3, [place] % (Auto) 4.8, Eos % (Auto) 2.2, Baso % (Auto) 0.5, Absolute Neuts (auto) 6.0, Absolute Lymphs (auto) 3.40, Nucleated RBC % 0 Current Medications Acetaminophen (Acetaminophen 325 Mg Tablet) 650 mg PO Q6H PRN PRN PRN Reason: Pain Score 1-10/Temp > 100.7 F Last Admin: 07/11/20 12:55 Dose: 650 mg Documented by: Diphenhydramine HCl (Diphenhydramine 50 Mg/Ml Syringe) 25 mg IV Q4H PRN PRN PRN Reason: ITCHING Last Admin: 07/11/20 09:39 Dose: 25 mg Documented by: Enoxaparin Sodium (Enoxaparin 40 Mg/0.4 Ml Syringe) 40 mg SC DAILY [facility] Last Admin: 07/11/20 09:48 Dose: 40 mg Documented by: Fluoxetine HCl (Fluoxetine 20 Mg Capsule) 40 mg PO DAILY [facility] Last Admin: 07/11/20 09:48 Dose: 40 mg Documented by: Ampicillin Sodium/Sulbactam (Sodium 3 gm/ Sodium Chloride) 112 mls @ 150 mls/hr IV Q6 [facility] Last Admin: 07/11/20 13:22 Dose: 150 mls/hr Documented by: Sodium Chloride () 250 mls @ 15 mls/hr IV .[id number] PRN PRN Reason: Saline Flush Sodium Chloride () 250 mls @ 15 mls/hr IV .[id number] PRN PRN Reason: Additional IVPB Infusion Vancomycin IV Pharmacy to Dose (1 ea/ Sodium Chloride) 500 mls @ 250 mls/hr IV X1 PRN; Protocol PRN Reason: Rx to Dose Vancomycin HCl 1,500 mg/ (Sodium Chloride) 530 mls @ 150 mls/hr IV Q12H [facility] Last Admin: 07/11/20 10:19 Dose: 150 mls/hr Documented by: Lactobacillus Acidophilus (Lactobacillus Acidophilus) 1 tablet PO TID [facility] Last Admin: 07/11/20 13:49 Dose: 1 tablet Documented by: Ondansetron HCl (Ondansetron 4 Mg/2 Ml Vial) 4 mg IV Q8H PRN PRN PRN Reason: NAUSEA/VOMITING Oxycodone HCl (Oxycodone 5 Mg Tablet) 5 mg PO Q4H PRN PRN PRN Reason: Pain Score 4-5 Last Admin: 07/11/20 02:12 Dose: 5 mg Documented by: Oxycodone HCl (Oxycodone 5 Mg Tablet) 10 mg PO Q4H PRN PRN PRN Reason: pain 6-10/10 Last Admin: 07/11/20 13:49 Dose: 10 mg Documented by: Senna/Docusate Sodium (Senna/Docusate Sodium 1 Tablet) 2 tablet PO BID PRN PRN PRN Reason: Constipation Last Admin: 07/10/20 16:44 Dose: 2 tablet Documented by: Sodium Chloride (0.9% Saline Lock 10 Ml Syringe) 10 - 40 ml IV UD PRN PRN Reason: SALINE FLUSH Last Admin: 07/11/20 09:39 Dose: 5 ml Documented by: Zolpidem Tartrate (Zolpidem Tartrate 5 Mg Tablet) 5 mg PO QHS [facility] Last Admin: 07/10/20 21:42 Dose: 5 mg Documented by: STROKE Vital Signs/Narrative: Vital Signs Temp Pulse Resp BP Pulse Ox 07/11/20 12:00 98.6 F 76 16 136/70 H 98 Medical Necessity - Tobacco Use Smoking Status: Current every day smoker Tobacco Use: Cigarettes Assessment/Plan All Active Problems (Last Updated 07/09/20 @ 20:[address] Gurmeet Heaton MD) No significant past medical history (Acute) Cellulitis and abscess of other specified site (Acute) Sepsis (Acute) Breast abscess (Acute) The patient is a 40 year old F with a significant history of insomnia and depression who presents to the emergency department with pain and swelling of her left breast. 1. Abscess with cellulitis of the left breast most likely from trauma about a month ago: Patient is admitted for. Patient had incision and drainage with greenish-yellow pus by ER physician. Prelim Gram stain of abscess shows gram-positive cocci in clusters, 3+ staph aureus. Patient was on vancomycin and Unasyn. Seen by surgeon, Dr. Pacheco. As per H&P, patient had mild redness after vancomycin infusion and rate was slowed. 07/11: Wound culture of left breast abscess is growing 3+ staph aureus. Full culture pending. Blood cultures pending so far. Vancomycin continued. Unasyn discontinued 2. Morbid Obesity BMI: 44.4. Complicates care. Lifestyle modification recommended. 3. Depression Prozac continued 4. Insomnia Ambien continued. DVT prophylaxis: Moderate risk. Lovenox 40 mg subcu daily Inpatient E&M: [id number] [facility] [[email or web address]] Hosp L2
[2020-07-11 16:18] VITALS: BP 139/70; PULSE 69; RESP 18; TEMP 36.6; O2SAT 96
[2020-07-11 21:55] LABS: Vancomycin, Trough Level 8.4 ug/mL (5.0-15.0)
[2020-07-11] MEDS: Zolpidem Tartrate 5 MG Tablet PO (22:24)
[2020-07-11 22:25] VITALS: BP 140/60; PULSE 75; RESP 16; TEMP 36.8; O2SAT 96
--- NOTE | 2020-07-12 00:53 | PCM.RX.CS ---
Consult Pharmacy has been consulted to manage selected antiobiotic: Vancomycin Type of Consult: Follow-up Suspected Infection: Skin/Soft tissue Prior Doses of Antibiotics Received/Current Regimen: Medications Vancomycin HCl 2,000 mg/ (Sodium Chloride) 540 mls @ 250 mls/hr IV Q12H [facility] Vancomycin HCl 1,500 mg/ (Sodium Chloride) 530 mls @ 150 mls/hr IV Q12H [facility] Stop: 07/12/20 02:30 Last Admin: 07/11/20 22:25 Dose: 150 mls/hr Labs: Sodium 138 mmol/L (136-145) 07/10/20 06:20 Potassium 3.8 mmol/L (3.5-5.1) 07/10/20 06:20 Chloride 107 mmol/L (98-107) 07/10/20 06:20 Carbon Dioxide 24.0 mmol/L (21.0-32.0) 07/10/20 06:20 Anion Gap 7 (5-15) 07/10/20 06:20 BUN 10 mg/dL (7-18) 07/10/20 06:20 Creatinine 0.66 mg/dL (0.55-1.02) 07/10/20 06:20 Est GFR (MDRD) Af Amer 126 mL/min (>60) 07/10/20 06:20 Est GFR (MDRD) Non-Af 104 mL/min (>60) 07/10/20 06:20 BUN/Creatinine Ratio 15.0 RATIO (10-20) 07/10/20 06:20 Glucose 91 mg/dL (74-106) 07/10/20 06:20 Vancomycin Trough 8.4 ug/mL (5.0-15.0) 07/11/20 21:08 Microbiology: Microbiology 07/09/20 17:15 Abs - Breast Gram Stain - Final 07/09/20 17:15 Abs - Breast Wound Culture - Preliminary Staphylococcus aureus Weight used for dosin.9 kg Estimated Creatinine Clearance: 106 Goal Trough: 10-15 mcg/mL Pharmacy Plan for Drug Dosing: Vancomycin trough level was low at 8.4. Will increase dose to 2000mg q12h and re-draw trough prior to 4th dose of new regimen. Pharmacy Service will continue to monitor and adjust dosing as required. Follow-Up Labs: Trough Vancomycin Labs to be done on [date and time ordered]: 07/13/20 @2200
[2020-07-12 03:30] VITALS: BP 128/71; PULSE 68; RESP 16; TEMP 36.8; O2SAT 100
[2020-07-12] MEDS: Acetaminophen 325 MG Tablet 650 MG PO (05:47)
[2020-07-12 06:38] LABS: Absolute Lymphocyte Count 3.56 X10^3/uL (0.83-4.51); Absolute Neutrophil Count 4.2 X10^3/uL (2.0-7.7); Basophil# 0.05 X10^3/uL; Basophil% 0.6 % (0-1); Eosinophils% 2.3 % (0-5); Hematocrit 30.9 % (37-47); Hemoglobin 9.7 g/dL (12.0-15.0); Lymphocyte # 3.56 X10^3/ul (4.0); Lymphocyte % 41.8 % (19-41); Mean Corp Hgb Conc 31.4 g/dL (32-36); Mean Corpuscular Hgb 28.5 pg (27.0-32.0); Mean Corpuscular Volume 90.9 fL (81-99); Mean Platelet Vol. 9.3 fl (6.2-12.0); Monocyte# 0.44 X10^3/uL; Monocyte% 5.2 % (0-10); NRBC Flagged by Analyzer 0 % (0-5); Neutrophil # 4.23 X10^3/uL (2.7-7.7); Neutrophil % 49.6 % (47-70); Platelet Count 534 K/mm3 (150-450); RBC Distribution Width CV 12.8 % (11.6-14.6); RBC Distribution Width SD 42.2 fl (35.1-43.9); White Blood Count 8.5 K/mm3 (4.4-11.0)
[2020-07-12 07:05] LABS: Anion Gap 8 (5-15); BUN 11 mg/dL (7-18); BUN/Creat Ratio 16.9 RATIO (10-20); Calcium,Total 8.8 mg/dL (8.5-10.1); Chloride 107 mmol/L (98-107); Creatinine, Serum 0.65 mg/dL (0.55-1.02); EST Glomerular Filtration Rate 107 mL/min (>60); Est Glom Filt Rate - Afr Amer 129 mL/min (>60); Glucose 88 mg/dL (74-106); Sodium Level 139 mmol/L (136-145)
[2020-07-12] MEDS: oxyCODONE 5 MG Tablet 10 MG PO (08:48)
--- NOTE | 2020-07-12 09:36 | DCINST_ITS ---
- Discharge Diagnoses Current Active Problems: Current Active and Chronic Problems (Last Updated 07/09/20 @ 20:[address] Gurmeet Heaton MD) No significant past medical history (Acute) Cellulitis and abscess of other specified site (Acute) Sepsis (Acute) Breast abscess (Acute) You will use the following diet at home:: Regular Your liquids should be the consistency of: Regular/Thin Discharge Activity: May Not Drive Call your doctor if you observe: Fever of 101 or Higher, Coldness, Increased Pain, Inability to urinate, Inability to have a bowel movement, Using more than one pad per hour, Shortness of breath, Dizziness, Fainting spells, Swelling in the ankles, Chest pain, Prolonged hiccoughing, Increased palpitations (irregular heartbeat), Calf discomfort, Uncontrolled pain Additional Instructions: Dressing change of left breast abscess educated by the wound nurse. Advised wound dressing twice a day Allergies/Adverse Reactions: Allergies No Known Allergies Allergy (Verified 07/09/20 16:31) Medications to take at Discharge Fluoxetine [Prozac] 40 mg PO QHS 07/09/20 Zolpidem Tartrate 5 mg PO QHS 07/09/20 l-Norgest/E.estradiol-E.estrad [Seasonique 0.15-0.03-0.01 Tab] 1 ea PO QHS 07/09/20 Lactobacillus Acidophilus [Acidophilus] 1 tablet PO TID tablet 07/12/20 Oxycodone HCl/Acetaminophen [Percocet 5/325] 1 tab PO Q6H PRN PRN 6 Days #20 tab 07/12/20 Smz/Tmp Ds [Bactrim Ds] 1 tab PO BID #10 tab 07/12/20 The following prescriptions were given: Smz/Tmp Ds [Bactrim Ds] 1 tab PO BID #10 tab Transmission Status: Received by [facility] Oxycodone HCl/Acetaminophen [Percocet 5/325] 1 tab PO Q6H PRN PRN 6 Days #20 tab PRN Reason: Pain Transmission Status: Received by [facility] Primary Care Physician: Candace Luke PA-C [Primary Care Provider] - Please follow up with your Primary Care Physician in: IN 2 WEEKS Test Results: Test results from this visit will be discussed in further detail at your follow- up appointment, if applicable. Please Follow Up With: Flor Pacheco MD When: Follow-up in 1 week
[2020-07-12 09:48] VITALS: BP 145/91; PULSE 80; RESP 16; TEMP 37; O2SAT 100
--- NOTE | 2020-07-12 09:57 | PCM.PN.SRG ---
Patient Problems: Active and Suspected Problems (Last Updated 07/09/20 @ 20:[address] Gurmeet Heaton MD) No significant past medical history (Acute) Cellulitis and abscess of other specified site (Acute) Sepsis (Acute) Breast abscess (Acute) Subjective: She is doing well erythema resolved - Physical Exam Vitals/I&O's: Vital Signs Temp Pulse Resp BP Pulse Ox 98.6 F 80 16 145/91 H 100 07/12/20 09:48 07/12/20 09:48 07/12/20 09:48 07/12/20 09:48 07/12/20 09:48 Oxygen Delivery Method Room Air Weight: 275 lb 5.718 oz Body Mass Index (BMI) 44.4 Intake and Output for Last 24 Hours 07/10/20 07/11/20 07/12/20 23:59 23:59 23:59 Intake Total 3038 / 3038 2776 / 2776 530 / 530 Balance 3038 / 3038 2776 / 2776 530 / 530 General: Alert, Oriented x3, Cooperative, No apparent distress Lungs: Normal air movement Cardiovascular: Regular rate Skin: - - Left breast erythema resolved improved induration, nontender, packed with half-inch iodoform Microbiology Past 72 Hours 07/09/20 17:15 Abs - Breast Gram Stain - Final 07/09/20 17:15 Abs - Breast Wound Culture - Final Staphylococcus aureus 07/09/20 17:29 Blood Culture (Wb) #2 - Anticubital Left Blood Culture - Preliminary No growth in 48 hours. 07/09/20 17:06 Blood Culture (Wb) - Anticubital Right Blood Culture - Preliminary No growth in 48 hours. Laboratory Results 07/11/20 21:08: Vancomycin Trough 8.4 07/12/20 05:20: WBC 8.5, RBC 3.40 L, Hgb 9.7 L, Hct 30.9 L, MCV 90.9, MCH 28.5, MCHC 31.4 L, RDW Std Deviation 42.2, RDW Coeff of Umair 12.8, Plt Count 534 H, MPV 9.3, Immature Gran % (Auto) 0.500, Neut % (Auto) 49.6, Lymph % (Auto) 41.8 H, [place] % (Auto) 5.2, Eos % (Auto) 2.3, Baso % (Auto) 0.6, Absolute Neuts (auto) 4.2, Absolute Lymphs (auto) 3.56, Nucleated RBC % 0 07/12/20 05:20: Sodium 139, Potassium 4.0, Chloride 107, Carbon Dioxide 24.0, Anion Gap 8, BUN 11, Creatinine 0.65, Estim Creat Clear Calc 107.70, Est GFR (MDRD) Af Amer 129, Est GFR (MDRD) Non-Af 107, BUN/Creatinine Ratio 16.9, Glucose 88, Calcium 8.8 Current Medications Acetaminophen (Acetaminophen 325 Mg Tablet) 650 mg PO Q6H PRN PRN PRN Reason: Pain Score 1-10/Temp > 100.7 F Last Admin: 07/12/20 05:47 Dose: 650 mg Documented by: Diphenhydramine HCl (Diphenhydramine 50 Mg/Ml Syringe) 25 mg IV Q4H PRN PRN PRN Reason: ITCHING Last Admin: 07/11/20 22:25 Dose: 25 mg Documented by: Enoxaparin Sodium (Enoxaparin 40 Mg/0.4 Ml Syringe) 40 mg SC DAILY [facility] Last Admin: 07/11/20 09:48 Dose: 40 mg Documented by: Fluoxetine HCl (Fluoxetine 20 Mg Capsule) 40 mg PO DAILY [facility] Last Admin: 07/11/20 09:48 Dose: 40 mg Documented by: Sodium Chloride () 250 mls @ 15 mls/hr IV .[id number] PRN PRN Reason: Saline Flush Sodium Chloride () 250 mls @ 15 mls/hr IV .[id number] PRN PRN Reason: Additional IVPB Infusion Vancomycin IV Pharmacy to Dose (1 ea/ Sodium Chloride) 500 mls @ 250 mls/hr IV X1 PRN; Protocol PRN Reason: Rx to Dose Vancomycin HCl 2,000 mg/ (Sodium Chloride) 540 mls @ 250 mls/hr IV Q12H [facility] Lactobacillus Acidophilus (Lactobacillus Acidophilus) 1 tablet PO TID [facility] Last Admin: 07/12/20 05:46 Dose: 1 tablet Documented by: Ondansetron HCl (Ondansetron 4 Mg/2 Ml Vial) 4 mg IV Q8H PRN PRN PRN Reason: NAUSEA/VOMITING Oxycodone HCl (Oxycodone 5 Mg Tablet) 5 mg PO Q4H PRN PRN PRN Reason: Pain Score 4-5 Last Admin: 07/11/20 02:12 Dose: 5 mg Documented by: Oxycodone HCl (Oxycodone 5 Mg Tablet) 10 mg PO Q4H PRN PRN PRN Reason: pain 6-10/10 Last Admin: 07/12/20 08:48 Dose: 10 mg Documented by: Senna/Docusate Sodium (Senna/Docusate Sodium 1 Tablet) 2 tablet PO BID PRN PRN PRN Reason: Constipation Last Admin: 07/10/20 16:44 Dose: 2 tablet Documented by: Sodium Chloride (0.9% Saline Lock 10 Ml Syringe) 10 - 40 ml IV UD PRN PRN Reason: SALINE FLUSH Last Admin: 07/11/20 09:39 Dose: 5 ml Documented by: Zolpidem Tartrate (Zolpidem Tartrate 5 Mg Tablet) 5 mg PO QHS [facility] Last Admin: 07/11/20 22:24 Dose: 5 mg Documented by: Medical Necessity - Tobacco Use Smoking Status: Current every day smoker Tobacco Use: Cigarettes Assessment/Plan All Active Problems (Last Updated 07/09/20 @ 20:[address] Gurmeet Heaton MD) No significant past medical history (Acute) Cellulitis and abscess of other specified site (Acute) Sepsis (Acute) Breast abscess (Acute) 40-year-old female with left breast MSSA abscess status post I&D in the ER. 1. Patient change dressing 2 times a day. Continue Bactrim DS x5 more days. Will follow up with me in 1 week. Patient no further questions this time. Flor Pacheco M.D. Pager: [phone] [facility] [address] [place] [address], Outpatient [place], [address] [place] [address] Office: [phone] Inpatient E&M: [id number] [facility]
--- NOTE | 2020-07-12 11:02 | NURSING ---
Pt's mother observed the dressing change again today. Mother did not want to do the dressing in front of this nurse are this time. states she feels she is able to do the dressing change with no issues. much less redness noted today. still some edema and induration noted, but much improved. pt tolerated the dressing change well.
[2020-07-12] MEDS: DiphenhydrAMINE 50 MG/ML Syringe 25 MG IV (11:05)
[2020-07-12] MEDS: 0.9% Saline Lock 10 ML Syringe IV (11:06)
[2020-07-12] MEDS: FLUoxetine 20 MG Capsule 40 MG PO (11:09)
[2020-07-12] MEDS: Enoxaparin 40 MG/0.4 ML Syringe SC (11:10)
--- NOTE | 2020-07-12 11:25 | DS.PCM_ITS ---
Discharge Date and Diagnosis - Problem List Patient Problems: Active and Suspected Problems (Last Updated 07/09/20 @ 20:[address] Gurmeet Heaton MD) No significant past medical history (Acute) Cellulitis and abscess of other specified site (Acute) Sepsis (Acute) Breast abscess (Acute) Date of Admission: 07/09/20 Date of Discharge: 07/12/20 - Primary Discharge Diagnosis Acute Problems: Active Problems (Last Updated 07/09/20 @ 20:[address] Gurmeet Heaton MD) No significant past medical history (Acute) Cellulitis and abscess of other specified site (Acute) Sepsis (Acute) Breast abscess (Acute) Hospital Course and Treatment Consultations 07/10/20 09:02 Consult: Onc/Wound/tile and marble installer Routine Comment: Reason for Consult:: left breast wound Summary of Care Provided: [] The patient is a 40 year old F with a significant history of insomnia and depression who presents to the emergency department with pain and swelling of her left breast. 1. Abscess with cellulitis of the left breast most likely from trauma about a month ago: Patient is admitted for. Patient had incision and drainage with greenish-yellow pus by ER physician. Prelim Gram stain of abscess shows gram- positive cocci in clusters, 3+ staph aureus. Patient was on vancomycin and Unasyn. Seen by surgeon, Dr. Pacheco. As per H&P, patient had mild redness after vancomycin infusion and rate was slowed. Wound culture from left breast shows 3+ MSSA. Discussed with the surgeon. Patient discharged on Bactrim DS for 5 more days. 2. Morbid Obesity BMI: 44.4. Complicates care. Lifestyle modification recommended. 3. Depression Prozac continued 4. Insomnia Ambien continued. DVT prophylaxis: Moderate risk. Lovenox 40 mg subcu daily Discharge medication reconciliation done. Discharge follow-up instructions completed. Discharge process discussed with the patient and all questions were answered to patient's satisfaction. Follow with Dr. Park in 1 week. Twice daily dressing change Total time spent, exact 35 minutes on discharge meds reconciliation, examination, coordination of care with nurses and ancillary staff, review of imaging and blood test and discussion with the patient on follow-up instructions Patient Problems: Active and Suspected Problems (Last Updated 07/09/20 @ 20:[address] Gurmeet Heaton MD) No significant past medical history (Acute) Cellulitis and abscess of other specified site (Acute) Sepsis (Acute) Breast abscess (Acute) Objective: No fever or chills. Heart rate and blood pressure controlled. Physical exam General: Alert, Oriented x3, Cooperative HEENT: Atraumatic, PERRLA, EOMI, Normocephalic Oral: No Gingival or Mucosal Lesions/ Ulcerations Neck: Supple, No JVD, Negative Carotid Bruits Lungs: Air entry equal in bilateral lung bases. No crepitation/rhonchi Cardiovascular: Regular rate, Regular Rhythm, Normal S1, Normal S2, No murmurs Abdomen: Bowel Sounds Present, Soft, Non Tender, Non-Distended : No renal angle tenderness. No suprapubic tenderness. Extremities: No edema, Capillary Refill Less than 3 Seconds Skin: Left breast tenderness, induration and redness has almost resolved. Dressing was changed Musculoskeletal: No Tenderness to Palpation of Joints or Extremities Neurological: Cranial nerves II-XII grossly intact, Deep Tendon Reflexes 2+/4 and Symmetrical, Neuro grossly intact Psych/Mental Status: Normal Affect, Appropriate. - Physical Exam Vitals/I&O's: Vital Signs Temp Pulse Resp BP Pulse Ox 98.3 F 68 16 128/71 H 100 07/12/20 03:30 07/12/20 03:30 07/12/20 03:30 07/12/20 03:30 07/12/20 03:30 Oxygen Delivery Method Room Air Weight: 275 lb 5.718 oz Body Mass Index (BMI) 44.4 Intake and Output for Last 24 Hours 07/10/20 07/11/20 07/12/20 23:59 23:59 23:59 Intake Total 3038 / 3038 2776 / 2776 530 / 530 Balance 3038 / 3038 2776 / 2776 530 / 530 Microbiology Past 72 Hours 07/09/20 17:29 Blood Culture (Wb) #2 - Anticubital Left Blood Culture - Preliminary No growth in 48 hours. 07/09/20 17:06 Blood Culture (Wb) - Anticubital Right Blood Culture - Preliminary No growth in 48 hours. 07/09/20 17:15 Abs - Breast Gram Stain - Final 07/09/20 17:15 Abs - Breast Wound Culture - Preliminary Staphylococcus aureus Laboratory Results 07/11/20 09:14: WBC 10.2, RBC 3.37 L, Hgb 9.7 L, Hct 30.4 L, MCV 90.2, MCH 28.8, MCHC 31.9 L, RDW Std Deviation 42.5, RDW Coeff of Umair 12.8, Plt Count 549 H, MPV 9.1, Immature Gran % (Auto) 0.400, Neut % (Auto) 58.8, Lymph % (Auto) 33.3, [place] % (Auto) 4.8, Eos % (Auto) 2.2, Baso % (Auto) 0.5, Absolute Neuts (auto) 6.0, Absolute Lymphs (auto) 3.40, Nucleated RBC % 0 07/11/20 21:08: Vancomycin Trough 8.4 07/12/20 05:20: WBC 8.5, RBC 3.40 L, Hgb 9.7 L, Hct 30.9 L, MCV 90.9, MCH 28.5, MCHC 31.4 L, RDW Std Deviation 42.2, RDW Coeff of Umair 12.8, Plt Count 534 H, MPV 9.3, Immature Gran % (Auto) 0.500, Neut % (Auto) 49.6, Lymph % (Auto) 41.8 H, [place] % (Auto) 5.2, Eos % (Auto) 2.3, Baso % (Auto) 0.6, Absolute Neuts (auto) 4.2, Absolute Lymphs (auto) 3.56, Nucleated RBC % 0 07/12/20 05:20: Sodium 139, Potassium 4.0, Chloride 107, Carbon Dioxide 24.0, Anion Gap 8, BUN 11, Creatinine 0.65, Estim Creat Clear Calc 107.70, Est GFR (MDRD) Af Amer 129, Est GFR (MDRD) Non-Af 107, BUN/Creatinine Ratio 16.9, Glucose 88, Calcium 8.8 Current Medications Acetaminophen (Acetaminophen 325 Mg Tablet) 650 mg PO Q6H PRN PRN PRN Reason: Pain Score 1-10/Temp > 100.7 F Last Admin: 07/12/20 05:47 Dose: 650 mg Documented by: Diphenhydramine HCl (Diphenhydramine 50 Mg/Ml Syringe) 25 mg IV Q4H PRN PRN PRN Reason: ITCHING Last Admin: 02/23/21 22:25 Dose: 25 mg Documented by: Enoxaparin Sodium (Enoxaparin 40 Mg/0.4 Ml Syringe) 40 mg SC DAILY [facility] Last Admin: 07/11/20 09:48 Dose: 40 mg Documented by: Fluoxetine HCl (Fluoxetine 20 Mg Capsule) 40 mg PO DAILY [facility] Last Admin: 07/11/20 09:48 Dose: 40 mg Documented by: Sodium Chloride () 250 mls @ 15 mls/hr IV .[id number] PRN PRN Reason: Saline Flush Sodium Chloride () 250 mls @ 15 mls/hr IV .[id number] PRN PRN Reason: Additional IVPB Infusion Vancomycin IV Pharmacy to Dose (1 ea/ Sodium Chloride) 500 mls @ 250 mls/hr IV X1 PRN; Protocol PRN Reason: Rx to Dose Vancomycin HCl 2,000 mg/ (Sodium Chloride) 540 mls @ 250 mls/hr IV Q12H [facility] Lactobacillus Acidophilus (Lactobacillus Acidophilus) 1 tablet PO TID [facility] Last Admin: 07/12/20 05:46 Dose: 1 tablet Documented by: Ondansetron HCl (Ondansetron 4 Mg/2 Ml Vial) 4 mg IV Q8H PRN PRN PRN Reason: NAUSEA/VOMITING Oxycodone HCl (Oxycodone 5 Mg Tablet) 5 mg PO Q4H PRN PRN PRN Reason: Pain Score 4-5 Last Admin: 07/11/20 02:12 Dose: 5 mg Documented by: Oxycodone HCl (Oxycodone 5 Mg Tablet) 10 mg PO Q4H PRN PRN PRN Reason: pain 6-10/10 Last Admin: 07/11/20 23:40 Dose: 10 mg Documented by: Senna/Docusate Sodium (Senna/Docusate Sodium 1 Tablet) 2 tablet PO BID PRN PRN PRN Reason: Constipation Last Admin: 07/10/20 16:44 Dose: 2 tablet Documented by: Sodium Chloride (0.9% Saline Lock 10 Ml Syringe) 10 - 40 ml IV UD PRN PRN Reason: SALINE FLUSH Last Admin: 07/11/20 09:39 Dose: 5 ml Documented by: Zolpidem Tartrate (Zolpidem Tartrate 5 Mg Tablet) 5 mg PO QHS [facility] Last Admin: 07/11/20 22:24 Dose: 5 mg Documented by: Home Medications: Medications to take at Discharge Fluoxetine [Prozac] 40 mg PO QHS 07/09/20 Zolpidem Tartrate 5 mg PO QHS 07/09/20 l-Norgest/E.estradiol-E.estrad [Seasonique 0.15-0.03-0.01 Tab] 1 ea PO QHS 07/09/20 Lactobacillus Acidophilus [Acidophilus] 1 tab PO TID tab 07/12/20 Oxycodone HCl/Acetaminophen [Percocet 5/325] 1 tab PO Q6H PRN PRN 6 Days #20 tab 07/12/20 Smz/Tmp Ds [Bactrim Ds] 1 tab PO BID #10 tab 07/12/20 Following Prescriptions Were Given to Patient: Smz/Tmp Ds [Bactrim Ds] 1 tab PO BID #10 tab Transmission Status: Received by [id number] Oxycodone HCl/Acetaminophen [Percocet 5/325] 1 tab PO Q6H PRN PRN 6 Days #20 tab PRN Reason: Pain Transmission Status: Received by [id number] Primary Care Physician: Candace Luke PADamienC [Primary Care Provider] - Medical Necessity - Tobacco Use Smoking Status: Current every day smoker Tobacco Use: Cigarettes Meaningful Use Info Meaningful Use Diagnoses (Choose all that apply): None applicable Inpatient E&M: [id number] [facility]
--- NOTE | 2020-07-12 11:29 | NURSING ---
Script for wound care supplies given to patient. No further concerns or needs at this time.
[2020-07-12 14:24] VITALS: BP 165/70; PULSE 78; RESP 18; TEMP 36.8; O2SAT 98
== END 2020-07-12 14:19 | disposition home or self-care (01) | DRG 854 ==
LOC: ED 18:52 → MS3 19:45
PROVIDERS: Surgery; Admitting Provider Hospitalist; Emergency Provider Emergency Medicine; PCP Family Medicine; Visit Provider Internal Medicine
DX: A41.9 Sepsis, unspecified organism (principal); Z68.41 Body mass index [BMI] 40.0-44.9, adult; N61.1 Abscess of the breast and nipple; E66.01 Morbid (severe) obesity due to excess calories; F32.9 Major depressive disorder, single episode, unspecified; F17.210 Nicotine dependence, cigarettes, uncomplicated; G47.00 Insomnia, unspecified; B95.61 Methicillin susceptible Staphylococcus aureus infection as the cause of diseases classified elsewhere
CPT/HCPCS: 10060; 36415; 80048; 80053; 80202; 83605; 85025; 87040; 87070; 87077; 87186; 87205; 87641; 99281; 99283; 99406; J7030; J7040; A4216; J0295

== ENCOUNTER 2023-12-18 10:21 | Emergency (ER) | payer OTHER, SELFPAY ==
[2023-12-18 10:22] VITALS: BP 187/89; PULSE 95; RESP 18; TEMP 36.4; O2SAT 98
--- NOTE | 2023-12-18 10:37 | EKG12_ITS ---
Test Reason : CHEST PAIN Blood Pressure : / mmHG Vent. Rate : 089 BPM Atrial Rate : 089 BPM P-R Int : 166 ms QRS Dur : 062 ms QT Int : 376 ms P-R-T Axes : 040 011 040 degrees QTc Int : 457 ms Normal sinus rhythm Normal ECG Confirmed by HECTOR FOUNTAIN MD ([id number]), editorial assistant KEVIN KERR ([id number]) on 12/19/2023 9:31:02 AM Referred By: Confirmed By:HECTOR FOUNTAIN MD
--- NOTE | 2023-12-18 10:39 | ED.RN ---
NO OLD EKGS
[2023-12-18 10:46] VITALS: O2SAT 97; BMI 48.0
--- NOTE | 2023-12-18 10:50 | ED.VIS.CHEST ---
HPI History of Present Illness Chief Complaint: Chest Pain Detail of Chief Complaint: Chest discomfort described as indigestion/heartburn Onset/Context/Timing Onset: Days (Approximately 4 to 5 days) Activity at onset: sudden Timing: Intermittent Quality: Positive for Burning and Indigestion Location: - (Epigastric, central chest to the jaw and neck as well as back) Current Severity: Mild Maximum Severity: Moderate Worsened By: Nothing Relieved By: Nothing Associated Symptoms: Positive for Diaphoresis and Dyspnea; Negative for Nausea, Vomiting, Cough, Fever, Lightheadedness or Palpitations Narrative Narrative: Patient is a 43-year-old woman with history of depression on Prozac. She is on no other medicine. There is no family history history of cardiac disease before the age of 55. She denies history of diabetes, hypertension hypercholesterolemia. She is a smoker. Patient reports 5-10 episodes prior to day of indigestion burning-like sensation radiating to the neck. This was associated with shortness of breath. Most of the episodes occurred at rest. No precipitating, alleviating or exacerbating factor. She is current. Denies intolerance to greasy fried foods. She denies sour eructation. She denies history of hiatal hernia, peptic ulcer disease, GERD or esophagitis. She denies black or maroon-colored stool. She has no history of VTE. She has no risk factors for VTE. She denies leg pain, swelling discoloration. At the time the EKG was obtained she had an Patient denies fever, chills night sweats. Patient denies weight gain weight loss. Prior Similar Symptoms: No Recent Illness/Hospitalization: No CVD Risk Factors: Positive for Smoking; Negative for Hypertension, Diabetes, Hypercholesterolemia or Family History 1' </=55 PE Risk Factors: Negative for Recent Travel/Surgery, Recent Immobilization, Prior DVT or PE, Cancer or OCP + Smoking + >/=35 TAD Risk Factors: Negative for Marfan's Syndrome, Hypertension or Family History [facility] Medical History Anxiety Depression Insomnia Breast abscess Sepsis Cellulitis and abscess of other specified site Home Medications ?Medication ?Instructions ?Recorded ?Last Taken ?Type L norgest/E estradiol-E estrad 1 ea PO QHS control 07/09/20 07/08/20 History 0.15 mg-30 mcg (84)/10 mcg(7) tabs,3mos zolpidem 5 mg tablet 5 mg PO QHS sleep 07/09/20 07/08/20 History acidophilus 25 million 1 tab PO TID 07/12/20 Unknown Rx cell-pectin, citrus 100 mg tablet fluoxetine 40 mg capsule 40 mg PO QAM 07/20/20 Unknown History sulfamethoxazole 800 1 tab PO BID #10 tabs 07/20/20 Unknown Rx mg-trimethoprim 160 mg tablet omeprazole 40 mg capsule,delayed 40 mg PO DAILY #30 caps 12/18/23 Unknown Rx release Allergy/AdvReac Type Severity Reaction Status Date / Time No Known Allergies Allergy Verified 12/18/23 10:22 Family History Mother Diabetes Heart disease Father Heart disease Diabetes Aunt CVA (cerebral vascular accident) Surgical History Hx of laparoscopy History of Hx of cholecystectomy Social History Smoking Status: Current every day smoker tobacco type: cigarettes alcohol intake: never substance use type: does not use caffeine: Yes what type of physical activity do you participate in: running, bicycling, aerobics and weight training frequency: 5-6 times per week ROS ROS ED Constitutional Constitutional ED: Denies chills, fever(s) or subjective Eyes Eyes: Reports none ENT ENT ED: Denies rhinorrhea or sore throat Cardiovascular Cardiovascular: Reports as per HPI; Denies orthopnea or paroxysmal nocturnal dyspnea Respiratory/Chest Respiratory/Chest: Reports dyspnea; Denies cough, dyspnea on exertion, orthopnea or paroxysmal nocturnal dyspnea Gastrointestinal Gastrointestinal: Denies abdominal pain, diarrhea, nausea or vomiting Musculoskeletal Musculoskeletal: Reports back pain; Denies arthralgias, myalgias or neck pain Integumentary Denies rash Neurologic Neurologic: Denies paresthesias Psychiatric Psychiatric: Reports depression; Denies anxiety Hematologic/Lymphatic Hematologic/Lymphatic: Denies easy bleeding or easy bruising EXAM Physical Exam Const Vital Signs: 12/18/23 10:22 12/18/23 10:44 12/18/23 10:46 Temperature 97.6 F L Temperature Source Temporal Pulse Rate 95 Respiratory Rate 18 Respiratory Effort Normal Non-Labored Blood Pressure 187/89 H Blood Pressure Mean 121 Pulse Ox 98 97 Oxygen Delivery Method Room Air Room Air 12/18/23 11:21 12/18/23 12:00 12/18/23 13:00 Temperature Temperature Source Pulse Rate 83 90 84 Respiratory Rate 17 24 H 15 Respiratory Effort Blood Pressure 118/55 L 113/48 L 106/67 Blood Pressure Mean 76 69 80 Pulse Ox 99 98 99 Oxygen Delivery Method Room Air Room Air Positive well nourished and well developed General Appearance ED: well developed and NAD; Negative for pallor HEENT Reports moist mucous membranes normocephalic and atraumatic Eyes PERRL and EOMs intact bilaterally General Eye ED: Negative for pale conjunctiva or scleral icterus Neck no lymphadenopathy, supple and no JVD Neck Narrative: There are no carotid bruits. Trachea is midline. Chest Wall inspection of chest normal and palpation of chest normal Resp clear to auscultation bilaterally Cardio regular rate, regular rhythm, S1 normal heart sound, S2 normal heart sound and no murmurs Peripheral Pulses: pulses 2+ throughout GI normal to inspection, nondistended, normoactive bowel sounds, soft to palpation, non-tender, non-distended and no masses; Negative for hepatosplenomegaly Back/Spine no CVA tenderness Extremity normal to inspection Extremity Narrative: There is no asymmetry, swelling, discoloration, leg vein distention, palpable cords or tenderness along the distribution of the deep venous system. General Extremety ED: Negative for edema or pulses abnormal General Extremity: Negative for edema or pulses abnormal Neuro oriented x3, CN's II-XII intact bilaterally and no sensory deficits noted Sensorium / Orientation: awake and alert Psych mental status grossly normal Skin no rashes or lesions noted and no wounds General Skin Exam: Negative for jaundice or pallor Heart Score History: Slightly/Non-Suspicious ECG: Normal Age: </= 45 years Risk Factors: 1 or 2 Risk Factors Score: 1 MDM MDM MDM Narrative Medical decision making narrative: Patient presents with chest pain. Differential is cardiac versus noncardiac. Noncardiac would include GERD, esophagitis, doubt biliary since she is status postcholecystectomy, pain of unknown etiology, PE is not considered since she is PERC negative. Will obtain EKG, chest x-ray appropriate blood work to assess for anemia, renal function and troponin with 2-hour troponin. Patient's blood pressure is elevated. She denies history of high blood pressure. Will follow since she is asymptomatic at the present time. History & Record Review Additional record(s) reviewed:: Prior ED visit (June 2020 for breast abscess.) Lab Data Attestation: I reviewed the patient's lab results. Lab results narrative: CBC is normal. Electrolyte panel is normal. First troponin is 4. Second troponin is 6 with a delta of 2. Both are less than 7. Negative predictive value is 100% in light of this. Patient be discharged home on PPI. She was instructed follow-up with her doctor for outpatient workup. Labs: Laboratory Results - last 24 hr 12/18/23 12/18/23 10:30 12:45 WBC 10.6 RBC 4.99 Hgb 14.7 Hct 44.2 MCV 88.6 MCH 29.5 MCHC 33.3 RDW Std Deviation 46.7 H RDW Coeff of Umair 14.6 Plt Count 386 MPV 9.3 Immature Gran % (Auto) 0.500 Neut % (Auto) 59.0 Lymph % (Auto) 31.7 [place] % (Auto) 5.5 Eos % (Auto) 2.4 Baso % (Auto) 0.9 Absolute Neuts (auto) 6.2 Absolute Lymphs (auto) 3.34 Nucleated RBC % 0 Sodium 136 Potassium 3.9 Chloride 106 Carbon Dioxide 22.0 Anion Gap 8 BUN 15 Creatinine 0.75 Estim Creat Clear Calc 136.84 Est GFR (MDRD) Af Amer 109 Est GFR (MDRD) Non-Af 90 BUN/Creatinine Ratio 20.1 H Glucose 108 H Calcium 8.9 Troponin I High Sens 4 6 Radiography Chest X-Ray - ED: 2 View and Read by ED Physician (Nuclear troponin is negative1 5 parenchyma normal. [place] normal. Osseous structures are unremarkable.) Diagnostic Testing: Clinical Impression(s) from Imaging Studies Chest X-Ray 12/18/23 10:55 IMPRESSION: Normal x-ray examination of the chest. Electronically Signed: Josh Leggett MD at 11:09 EDT , EKG Initial EKG: Attestation: I personally reviewed and interpreted this EKG as follows: Interpretation: Sinus Rhythm (Rate is 89. EKG is normal. [place] interval is 106 6 ms. Cures duration 62 ms. QT duration 3 and 76 ms. Bradford is normal.) Treatment and Re-Evaluation :: Patient was informed of results. She was informed to follow-up with her doctor. Discharge Plan Triage Chief Complaint: Chest Pain ED Provider: Mitchel Pappas Dx/Rx/DC Orders Clinical Impression: Acute epigastric pain, Depression, Heartburn Instructions: ED Epigastric Pain Uncertain Cause Prescriptions: New omeprazole 40 mg capsule,delayed release(DR/EC) 40 mg PO DAILY Qty: 30 0RF No Action fluoxetine 40 mg capsule 40 mg PO QAM Patient Comments: TAKE 1 CAPSULE BY MOUTH IN THE MORNING sulfamethoxazole-trimethoprim 800-160 mg tablet 1 tab PO BID Qty: 10 0RF zolpidem 5 MG tablet 5 mg PO QHS L norgest/e.estradiol-e.estrad 1 EACH tablets,dose pack,3 month 1 ea PO QHS acidophilus-pectin, citrus 1 TABLET tablet 1 tab PO TID 0RF Rx Instructions: for 1 week. OTC Primary Care Provider: Candace Luke Referrals: Candace Luke PA-C [Primary Care Provider] - 1 Week Print Language: Korean Disposition Disposition: Home, Self Care
[2023-12-18 10:51] LABS: Absolute Lymphocyte Count 3.34 X10^3/uL (0.83-4.51); Absolute Neutrophil Count 6.2 X10^3/uL (2.0-7.7); Basophil# 0.09 X10^3/uL; Basophil% 0.9 % (0-1); Eosinophil# 0.25 X10^3/uL; Eosinophils% 2.4 % (0-5); Hematocrit 44.2 % (37-47); Hemoglobin 14.7 g/dL (12.0-15.0); Lymphocyte # 3.34 X10^3/ul (0.83-4.51); Lymphocyte % 31.7 % (19-41); Mean Corp Hgb Conc 33.3 g/dL (32-36); Mean Corpuscular Hgb 29.5 pg (27.0-32.0); Mean Corpuscular Volume 88.6 fL (81-99); Mean Platelet Vol. 9.3 fl (6.2-12.0); Monocyte# 0.58 X10^3/uL; Monocyte% 5.5 % (0-10); NRBC Flagged by Analyzer 0 % (0-5); Neutrophil # 6.24 X10^3/uL (2.7-7.7); Platelet Count 386 K/mm3 (150-450); RBC Distribution Width CV 14.6 % (11.6-14.6); RBC Distribution Width SD 46.7 fl (35.1-43.9); Red Blood Count 4.99 M/mm3 (4.2-5.4); White Blood Count 10.6 K/mm3 (4.4-11.0)
--- NOTE | 2023-12-18 10:55 | RAD_ITS ---
STUDY: X-RAY CHEST REASON FOR EXAM: Female, 43 years old. Intermittent epigastric pain. Shortness of breath. TECHNIQUE: PA and lateral views of the chest. COMPARISON: None. FINDINGS: EKG electrodes are seen. The lungs are clear and expanded. There is no demonstrated pleural abnormality. Normal size heart. Calcified right hilar lymph nodes. Normal visualized pulmonary arteries. Normal visualized aortic arch and descending thoracic aorta. Normal visualized thoracic spine. Normal visualized ribs, clavicles, and shoulders. There is no demonstrated abnormality of the visualized soft tissue structures of the upper abdomen. RAD/Chest PA and Lateral IMPRESSION: Normal x-ray examination of the chest. Electronically Signed: Josh Leggett MD at 11:09 EDT ,
[2023-12-18 11:10] LABS: Anion Gap 8 (5-15); BUN 15 mg/dL (7-18); BUN/Creat Ratio 20.1 RATIO (10-20); Calcium,Total 8.9 mg/dL (8.5-10.1); Chloride 106 mmol/L (98-107); Creatinine, Serum 0.75 mg/dL (0.55-1.02); EST Glomerular Filtration Rate 90 mL/min (>60); Est Glom Filt Rate - Afr Amer 109 mL/min (>60); Estimated Creatinine Clearance 136.84 ml/min; Glucose 108 mg/dL (74-106); Potassium 3.9 mmol/L (3.5-5.1); Sodium Level 136 mmol/L (136-145); Troponin-I HS (w/2H Reflex) 4 pg/mL (3.0-54.0)
[2023-12-18 11:21] VITALS: BP 118/55; PULSE 83; RESP 17; O2SAT 99
[2023-12-18 12:00] VITALS: BP 113/48; PULSE 90; RESP 24; O2SAT 98
[2023-12-18 12:47] LABS: Reflex Troponin-HS? (from REC) Y
[2023-12-18 13:00] VITALS: BP 106/67; PULSE 84; RESP 15; O2SAT 99
[2023-12-18 13:12] LABS: Troponin-I HS 6 pg/mL (3.0-54.0)
[2023-12-18 13:56] VITALS: BP 112/65; PULSE 82; RESP 16; TEMP 36.1; O2SAT 96
== END 2023-12-18 13:57 | disposition home or self-care (01) ==
PROVIDERS: Emergency Provider Emergency Medicine; PCP Family Medicine; Visit Provider Emergency Medicine
DX: R10.13 Epigastric pain (principal); F32.A Depression, unspecified; F41.9 Anxiety disorder, unspecified; F17.210 Nicotine dependence, cigarettes, uncomplicated; Z79.899 Other long term (current) drug therapy
CPT/HCPCS: 71046; 80048; 84484; 85025; 93005; 99284; A4216

== ENCOUNTER → 2024-09-03 | Outpatient (CLI) | payer OTHER, SELFPAY ==
[2024-09-03 11:24] LABS: Hemoglobin A1c 6.2 % (<=5.6)
[2024-09-03 11:49] LABS: ALB/GLOB Ratio 1.4 RATIO (0.9-2.4); AST(SGOT) 18 U/L (<=31); Alanine Aminotransfer ALT/SGPT 26 U/L (<=34); Albumin, Serum 4.6 g/dL (3.5-5.0); Alkaline Phosphatase 72 U/L (35-104); Anion Gap 13 (5-15); BUN 16 mg/dL (4-19); BUN/Creat Ratio 24.4 RATIO (10-20); Calcium,Total 9.4 mg/dL (7.6-11.0); Carbon Dioxide 21.7 mmol/L (21.0-32.0); Chloride 101 mmol/L (98-108); Cholesterol 247 mg/dL (<=200); Creatinine, Serum 0.64 mg/dL (0.70-1.20); EST Glomerular Filtration Rate 112 (>60); Free T3 3.3 pg/mL (2.18-3.98); Globulin 3.2 g/dL (2.2-4.2); Glucose 100 mg/dL (70-99); High Density Lipoprotein 44 mg/dL; Low Density Lipoprotein Calc. 151 mg/dL; Potassium 4.3 mmol/L (3.3-5.1); Protein, Total 7.9 g/dL (5.9-8.4); Sodium Level 136 mmol/L (133-145); Total Bilirubin 0.21 mg/dL (0.00-1.30); Triglycerides 264 mg/dL; Very Low Density Lipoprotein 53 mg/dL (5-40); Vitamin D,25 Hydroxy 29.5 ng/mL (30-100); cholesterol:hdl ratio screen 5.67
[2024-09-06 16:08] LABS: Thyroglobulin Antibody < 1.0 IU/mL (0.0-0.9)
== END | disposition home or self-care (01) ==
LOC: LAB 10:05
PROVIDERS: PCP Family Medicine; Referring Provider Family Medicine; Visit Provider Family Medicine
DX: R63.5 Abnormal weight gain (principal); Z13.1 Encounter for screening for diabetes mellitus; Z13.220 Encounter for screening for lipoid disorders
CPT/HCPCS: 36415; 80053; 80061; 82306; 83036; 84439; 84443; 84481; 86800